=== PATIENT | female | born 1990 | race Caucasian/White ===

== ENCOUNTER 2018-03-02 21:40 | Emergency (ER) | payer SELFPAY ==
[~2018-03-02 21:40] MED LIST: IBUP600T26 PO
[2018-03-02 21:55] VITALS: BP 131/67; PULSE 90; RESP 20; TEMP 98.6; O2SAT 99
[2018-03-02 22:57] LABS: BILIRUBIN, URINE NEG (NEG); BLOOD, URINE NEG (NEG); GLUCOSE,URINE NEG (NEG); KETONE, URINE NEG (NEG); NITRITE,URINE NEG (NEG); PH, URINE 5.5 (5.0-8.5); URINE COLOR YELLOW (YELLW/STRAW); URINE LEUKOCYTE ESTERASE NEG (NEG)
[2018-03-02 23:06] LABS: SQUAMOUS EPITHELIAL CELL URINE 0-5 /hpf (0-5)
== END 2018-03-02 23:15 | disposition left against medical advice (07) ==
LOC: PHED 21:40
DX: R07.9 Chest pain, unspecified (principal); Z53.21 Procedure and treatment not carried out due to patient leaving prior to being seen by health care provider
CPT/HCPCS: 81001; 84703; 99281